=== PATIENT | female | born 1980 | race Caucasian/White ===

== ENCOUNTER 2019-03-11 12:48 | Emergency (ER) | payer OTHER ==
--- NOTE | 2019-03-11 19:47 | ER Document Report ---
ED General - General Chief Complaint: S/S of Possible Stroke Stated Complaint: POSSIBLE STROKE Time Seen by Provider: 03/11/19 13:46 Notes: Patient was brought in today because she is having symptoms that are believed to be a stroke. She was seen for similar symptoms, primarily headache and numbness, Thursday at the [facility] and had studies including MRIs and was discharged home and told that she had had a stroke. She came here today because she is having a headache she underwent some musculoskeletal and neurologic functioning tests Thursday. She says that her doctor, Dr. Morton, called her today and told her that she needed to come to the emergency room right away. As I entered the examining room, patient has her eyes closed and is not responding to voice or questions or following commands. She has a very fine twitching throughout her entire body. Not seizures. I asked the family to step out of the room and with the nurse present, I used my index finger to push very firmly under the patient's right ear, enough to be a noxious stimulus to the patient. She opened her eyes suddenly and bolted up to the sitting upright position and I told her that it was obvious from her examination that she did not have any true physical abnormality in her examination and that she had control over what she was doing and this was all emotional or psychiatric. After that, patient told me that she did not want me talking to her like that anymore. And that she wanted to leave. She was able to stand without assistance. She was able to talk without complications. The nurse was present at the bedside that entire time. Family was outside of the room. I let them back into the room after the patient began speaking. She signed out AGAINST MEDICAL ADVICE not wishing to receive any further evaluation or care here. I called Dr. Morton to make him aware of the patient being here. He says he has not spoken to this patient for over a week. I am not sure who she is talking about called her to tell her she needed to come back to this emergency room today because they specifically said it was Dr. Morton. Patient did not permit me to do further physical examination or testing at this time. TRAVEL OUTSIDE OF THE [place] IN LAST 30 DAYS: No - Related Data Allergies/Adverse Reactions: No Known Allergies Allergy (Verified 02/21/13 11:49) Past Medical History - Social History Smoking Status: Unknown if Ever Smoked Family History: Other - unable to obtain Patient has suicidal ideation: No Patient has homicidal ideation: No Neurological Medical History: Reports: Hx Migraine, Other - Supposedly told she had a stroke Thursday when she was seen at [facility] Past Surgical History: Reports: Hx Hysterectomy - Immunizations Hx Diphtheria, Pertussis, Tetanus Vaccination: Yes Review of Systems - Review of Systems -: Yes ROS unobtainable due to patient's medical condition Physical Exam - Vital signs Interpretation: Normal Notes: PHYSICAL EXAMINATION: GENERAL: Well-appearing, eyes closed, very fine twitching of her entire body, both sides, all 4 limbs as well as her head. HEAD: Atraumatic, normocephalic. EYES: Unable to assess because patient has her eyes closed and will not follow commands and open them. LUNGS: Breath sounds clear and equal bilaterally. HEART: Regular rate and rhythm without murmurs. NEUROLOGICAL: See HPI. Patient would not cooperate for further neurologic examination. It is obvious from her initial presentation, the patient has a hysterical based conversion reaction. It does not fit into any illness that I have witnessed of a true neurologic nature. Patient got up out of the bed, wanted to be discharged, said that this hospital "sucks", and was allowed to leave the department with her relatives. Discharge - Discharge Clinical Impression: Twitching Disposition: AGAINST MEDICAL ADVICE
== END 2019-03-11 13:48 | disposition left against medical advice (07) ==
LOC: ER 12:48
DX: R25.3 Fasciculation (principal); R51 Headache; Z86.73 Personal history of transient ischemic attack (TIA), and cerebral infarction without residual deficits; Z90.710 Acquired absence of both cervix and uterus
CPT/HCPCS: 99283